=== PATIENT | male | born 1965 | race Caucasian/White ===

== ENCOUNTER 2024-07-28 02:35 | Emergency (ER) | payer OTHER, SELFPAY ==
[2024-07-28] VITALS (15 sets, daily range): BP systolic 116–215; BP diastolic 78–129; PULSE 101–156; RESP 14–92; TEMP 34.9–37.5; O2SAT 18–100; BMI 23.7
[2024-07-28] MEDS: 0.9% Normal Saline (1000mL) 1,000 ML 999 ML IV (02:37)
--- NOTE | 2024-07-28 02:49 | EKG12_ITS ---
Test Reason : DYSRHYTHMIA Blood Pressure : */* mmHG Vent. Rate : 117 BPM Atrial Rate : 105 BPM P-R Int : 168 ms QRS Dur : 124 ms QT Int : 388 ms P-R-T Axes : * 124 -69 degrees QTcB Int : 541 ms Sinus tachycardia Right bundle branch block Septal infarct , age undetermined Lateral infarct , age undetermined Marked ST abnormality, possible inferior subendocardial injury Marked ST abnormality, possible anterior subendocardial injury Poor data quality Abnormal ECG Confirmed by Getachew Wise ([id number]), newspaper editor GEOFFREY REYNA ([id number]) on 07/29/2024 11:40:47 AM Referred By: ЕЛЕНА Confirmed By: Getachew Wise
--- NOTE | 2024-07-28 02:51 | EDS_ITS ---
HPI History of Present Illness Chief Complaint: CPR Informant: EMS Limited: coma Narrative Narrative: 58-year-old male witnessed collapse and arrest by a girlfriend [facility], per EMS they arrived at the patient 10 minutes after the call went out, deputies were there doing CPR, maximum amount of downtime without CPR 5-8 minutes. Paramedics originally called asking permission to discontinue the resuscitation after they had worked on the patient for over 20 minutes, they had nothing but V-fib on the monitor, having attempted cardioversion around 7 times, provided 5 rounds of epinephrine, and 2 doses of amiodarone, 300 mg followed by another 150 mg. However during the conversation with me after they gave the patient a dose of Narcan, the patient regained a pulse and did not seem to be in ventricular fibrillation anymore so they transported the patient. They did not lose a pulse between then and arriving in the ER. Medical history unknown. PFSH PFSH Medical History unable to obtain unable to obtain Home Medications ?Medication ?Instructions ?Recorded ?Last Taken ?Type NK 07/28/24 Unknown History Allergy/AdvReac Type Severity Reaction Status Date / Time No Known Allergies Allergy Verified 07/28/24 03:08 Family History unable to obtain Surgical History unable to obtain Social History Smoking Status: Unknown if ever smoked ROS ROS ED Review of Systems ROS Unobtainable: due to mental status EXAM Physical Exam Const Vital Signs: 07/28/24 02:35 07/28/24 02:36 07/28/24 03:02 Temperature 96 F L Temperature Source Temporal Pulse Rate 156 H 148 H Respiratory Rate 20 H 17 Respiratory Pattern Blood Pressure 174/129 H 174/129 H Blood Pressure Mean 144 144 Pulse Ox 100 Oxygen Delivery Method Ambu-Bag Ambu-Bag Mechanical Ventilator Fraction of Inspired Oxygen (FIO2) 07/28/24 03:05 07/28/24 03:07 07/28/24 03:15 Temperature Temperature Source Pulse Rate 130 H Respiratory Rate 18 14 Respiratory Pattern Normal Normal Blood Pressure 207/119 H Blood Pressure Mean 148 Pulse Ox 100 Oxygen Delivery Method Mechanical Ventilator Fraction of Inspired Oxygen (FIO2) 100 07/28/24 03:30 07/28/24 04:00 07/28/24 04:30 Temperature 94.9 F L 96.0 F L 96.2 F L Temperature Source Core Core Core Pulse Rate 101 H 108 H 104 H Respiratory Rate 14 14 18 Respiratory Pattern Blood Pressure 215/104 H 182/116 H 169/127 H Blood Pressure Mean 141 138 141 Pulse Ox 100 95 95 Oxygen Delivery Method Mechanical Ventilator Mechanical Ventilator Mechanical Ventilator Fraction of Inspired Oxygen (FIO2) 07/28/24 05:00 07/28/24 05:30 Temperature 96.5 F L 96.7 F L Temperature Source Core Core Pulse Rate 106 H 109 H Respiratory Rate 92 H 20 H Respiratory Pattern Blood Pressure 173/116 H 165/119 H Blood Pressure Mean 135 134 Pulse Ox 18 91 Oxygen Delivery Method Mechanical Ventilator Mechanical Ventilator Fraction of Inspired Oxygen (FIO2) Positive well nourished and well developed General Appearance ED: well developed and pallor Orientation / Consciousness: obtunded Exam Limitations: altered mental status HEENT normocephalic and atraumatic; Negative for cyanosis of lips/distal nose Eyes Eyes Narrative: Pupils 1-2 mm Pupil: not reactive Positive for bilateral Neck supple Resp Resp Narrative: + spontaneous respirations. Breath sounds are present and equal bilaterally with bagging. Cardio Cardio Narrative: Intact 2+ distal radial pulses bilaterally Rate: tachycardic Rhythm: abnormal rhythm irregularly irregular GI non-distended Palpation: soft Neuro Neuro Narrative: Obtunded and flaccid x4. GCS [address] with [address] in place Skin General Skin Exam: pallor Lesions: no lesions Rashes: no rashes MDM MDM MDM Narrative Medical decision making narrative: Upon initial presentation and evaluation the patient appears to be in ventricular tachycardia but difficult to assess the rhythm on the monitor and the Zoll. With his rate in the 160s, I presumed he was in ventricular tachycardia, although he does have a pulse. He has already been given amiodarone 450 mg total, so we proceeded to shock him with attempted cardioversion twice, the second time we switched to new pads that were anterior posterior as opposed to right upper chest and left lateral, and with continuing to observe him it appeared more likely to be A-fib with ectopy although on the EKG still difficult to assess the exact rhythm. Does not appear to be STEMI. Therefore since he still has a pulse and a blood pressure, pulse ranging from the 90-140 range, at that point we opted to switch his IGel out for an ETT. See the procedure note, confirmed placement with 1 view chest x-ray on my interpretation, and no other acute abnormality. OG tube also noted to be in good position without a separate KUB. Potassium level is very low so we started replacement, as this can lead to PEA. He will also need alcohol withdrawal prophylaxis. I also had nurses place ice packs in his groins, axillae, and neck as we do not have a hypothermic protocol here but it is indicated for this patient given his ventricular fibrillation arrest. As part of intubating the patient we placed an OG, and it is pulling blood from his stomach, pulled around 30-50 mL, and no continuous active bleeding. The blood is dark red. Therefore we held aspirin. I am starting IV pantoprazole, as alcoholic gastritis versus varices are all in the differential although I do not think this is an acute life-threatening hemorrhage at this point. I was able to speak with significant other. She states he was vomiting earlier in the day, and appeared to have some shortness of breath separate from the vomiting prior to becoming unconscious. He has been vomiting off and on and has an appointment to see a doctor but has not seen one in a long time, and therefore has no known medical problems. She states he is a chronic alcoholic and drinks a lot every day, but probably has not had any in the last 24 hours just cigarettes. She states he does not use any other substances. Also later than that I was able to talk with the police records clerk who was on scene as floor care technician and started CPR on this patient. He arrived on scene at 1:49 AM, the call went out he states at 1:43 AM, and the patient's significant other told him that she last saw him normal at 9 PM when they went to bed and he was feeling short of breath prior to that, and then she woke up somewhere around 1:30 in the morning and checked on him at that time and he was not waking up so she tried really hard to wake him up but was unable and, splashed water on his face, and then called 911. Therefore, downtime could have been a lot longer without CPR. I discussed all this with Dr. Barnes, on for cardiology after I sent him the EKG. He agrees managing the patient supportively at this time and not taking him emergently to the [facility]. He agrees with my interpretation of the EKG that it probably shows subendocardial ischemia without a STEMI and possibly A-fib. Given the patient's persistent altered level of consciousness without parenteral sedatives postintubation, obtained a CT of the head. On my interpretation there is no acute hemorrhage or asymmetry or severe edema. Discussed with hospitalist who recommends transfer to a higher level of care since we do not have GI this weekend, no hypothermic protocols here, and we do not have an atv mechanic who is present, just telemetry-ICU. Significant other prefers him to go to [place] because it is closer, [facility]. I discussed with them, and the nurse practitioner covering the ICU tonight. He accepts the patient under Dr. Conte. History & Record Review Discussion w/independent historian: EMS personnel, Significant other and Other (fisheries enforcement officer on scene) Additional record(s) reviewed:: No prior records Lab Data Attestation: I reviewed the patient's lab results. Labs: Laboratory Results - last 24 hr 07/28/24 07/28/24 07/28/24 02:41 03:11 03:23 WBC 12.9 H RBC 4.83 Hgb 16.5 Hct 50.9 MCV 105.4 H MCH 34.2 H MCHC 32.4 RDW Std Deviation 52.7 H RDW Coeff of Gil 13.4 Plt Count 179 MPV 9.6 Neut % (Auto) Not Reportable Absolute Neuts (auto) 9.7 H Absolute Lymphs (auto) 2.83 Total Counted 100 Neutrophils % (Manual) 68 Band Neutrophils % 7 H Lymphocytes % (Manual) 22 Monocytes % (Manual) 1 Metamyelocytes % 2 H Diff Path Review May foll Platelet Estimate ADEQUATE Anisocytosis 1+ Macrocytosis 1+ Sodium 144 Potassium 2.7 L* Chloride 103 Carbon Dioxide 22.0 Anion Gap 19 H BUN 10 Creatinine 1.78 H Estim Creat Clear Calc 47.28 Est GFR (MDRD) Af Amer 51 L Est GFR (MDRD) Non-Af 42 L BUN/Creatinine Ratio 5.6 L Glucose 287 H Lactic Acid 10.1 H* Calcium 8.8 Total Bilirubin 1.20 H AST 200 H ALT 46 Alkaline Phosphatase 196 H Troponin I High Sens 100 H Total Protein 7.1 Albumin 3.1 L Globulin 4.0 Albumin/Globulin Ratio 0.8 L Urine Opiates Screen NEGATIVE Urine Methadone Screen NEGATIVE Ur Barbiturates Screen NEGATIVE Ur Phencyclidine Scrn NEGATIVE Ur Amphetamines Screen NEGATIVE MDMA (Ecstasy) Screen NEGATIVE U Benzodiazepines Scrn NEGATIVE Urine Cocaine Screen NEGATIVE U Cannabinoids Screen NEGATIVE Ur Drug Screen Comment Ethyl Alcohol < 3.0 ABG Data Attestation: I personally reviewed and interpreted this ABG as follows: ABG results: ABG 07/28/24 03:38 Specimen Type ART Sample Site R Radial pH 7.17 L* Bicarbonate Actual 18.2 L Total CO2 20 Base Excess -10 L O2 Saturation 100 H O2 % 100.0 ABG pCO2 49.6 H ABG pO2 509 H* Norris Test Positive Respiration Rate 14 O2 Delivery Device Adult Vent Vent Mode AC Tidal Volume 450.0 POC PEEP 5 Crit Call To/Read Back Yes Blood Gas Notified Whom Goyo Blood Gas Notified Time 03:39:48 As result of above, decreased FiO2 and increased resp rate from 14 to 18 (mixed resp and met acidosis). Radiography Diagnostic Testing: Clinical Impression(s) from Imaging Studies Chest X-Ray 07/28/24 04:00 IMPRESSION: Suggest advancing endotracheal tube. Electronically Signed: Devora Mendoza MD at 5:04 EST Reading Location ID and State: [address] [place] [address] , Service support , Brain CT 07/28/24 04:09 IMPRESSION: No CT evidence for mass or acute intracranial hemorrhage. Electronically Signed: Devora Mendoza MD at 5:09 EST Reading Location ID and State: [id number] , Service support , Rhythm Strip Rhythm Strip: A-fib Rate: 105 Ectopy: PVC(s) EKG Initial EKG: Attestation: I personally reviewed and interpreted this EKG as follows: Comments: Difficult to determine rhythm; I suspect A-fib with wide QRS, possibly some ST depressions indicating some endocardial ischemia, but no STEMI; frequent ventricular ectopy further complicates rhythm interpretation Prior: No Prior Management Discussion w/another healthcare provider: Hospitalist and C D Still Operator (Cardiology) Procedures Intubations Intubation Method: orotracheal (8.0F ETT, placed via video laryngoscopy, suction small amount of secretions from the glottis, visualized the tube passing through the cords, inflated and placed at 22 cm at the lip) Intubation Verification: Positive color change and Bilateral breath sounds confirmed Intubation Complications: no complications Procedural Sedation 1 (Initial Baseline): Consent Signed: No (Emergent procedure for RSI) Sedation medication: Etomidate Dose: 10 Route: IV Total Moderate Sedation Units: 8 Maliampati Score: Class II ASA Classification: E Comment:: On monitor with prophylactic nasal cannula oxygenation and IV fluids, end-tidal CO2 monitoring, airway equipment and use simultaneously. Tolerated well with no complications. Critical Care Time Critical Care Time: Yes Critical care time (excluding procedures): 30-74 minutes (40 min, not including procedure time), Including time spent:, Discussing w/Patient &/or Family/Police Stenographer, Discussing w/Consultants, Arranging Admission or Transfer and Performing Direct Patient Care at Bedside Discharge Plan Triage Chief Complaint: CPR ED Provider: aCio Nance Dx/Rx/DC Orders Clinical Impression: Cardiopulmonary arrest with successful resuscitation, Acute upper gastrointestinal bleeding, Alcoholism, Acute hypokalemia, Cardiac arrest with ventricular fibrillation, Hypoxic ischemic encephalopathy Prescriptions: No Action NK Primary Care Provider: Care Physician,No Primary Referrals: NOT,DEFINED [Non-Staff] - Print Language: Austrian Disposition Disposition: Acute Care Hospital Discharge Location: [facility]
[2024-07-28 02:53] LABS: Hematocrit 50.9 % (40-54); Hemoglobin 16.5 g/dL (13.0-16.5); Mean Corp Hgb Conc 32.4 g/dL (32-36); Mean Corpuscular Hgb 34.2 pg (27.0-32.0); Mean Corpuscular Volume 105.4 fL (80-94); Mean Platelet Vol. 9.6 fl (6.2-12.0); POSITIVE COUNT YES; POSITIVE MORPHOLOGY YES; Platelet Count 179 K/mm3 (150-450); RBC Distribution Width CV 13.4 % (11.6-14.6); RBC Distribution Width SD 52.7 fl (35.1-43.9); Red Blood Count 4.83 M/mm3 (4.6-6.2); White Blood Count 12.9 K/mm3 (4.4-11.0)
[2024-07-28] MEDS: Etomidate 20 MG/10 ML Vial 10 MG IV (02:56)
[2024-07-28 02:57] LABS: Differential Indicated MANUAL DIFF
[2024-07-28] MEDS: Rocuronium Bromide 50 MG/5 ML Vial 70 MG IV (02:58)
[2024-07-28 03:18] LABS: Lymphocyte 22 % (19-41); Metamyelocyte 2 % (0-1); Monocyte 1 % (0-10); Neutrophil-Band 7 % (0-5); Neutrophil-Segmented 68 % (47-70); Platelet Estimate ADEQUATE (ADEQ); Total Cells Counted 100 (MANUAL DIFF)
[2024-07-28 03:19] LABS: Anisocytosis 1+; Macrocytosis 1+
[2024-07-28 03:20] LABS: Absolute Lymphocyte Count 2.83 X10^3/uL (0.83-4.51); Absolute Neutrophil Count 9.7 X10^3/uL (2.0-7.7)
[2024-07-28 03:24] LABS: ALB/GLOB Ratio 0.8 RATIO (0.9-2.4); AST(SGOT) 200 U/L (15-37); Alanine Aminotransfer ALT/SGPT 46 U/L (16-61); Albumin, Serum 3.1 g/dL (3.2-5.0); Alkaline Phosphatase 196 U/L (45-117); Anion Gap 19 (5-15); BUN 10 mg/dL (7-18); BUN/Creat Ratio 5.6 RATIO (10-20); Calcium,Total 8.8 mg/dL (8.5-10.1); Chloride 103 mmol/L (98-107); Creatinine, Serum 1.78 mg/dL (0.70-1.30); EST Glomerular Filtration Rate 42 mL/min (>60); Est Glom Filt Rate - Afr Amer 51 mL/min (>60); Estimated Creatinine Clearance 47.28 ml/min; Glucose 287 mg/dL (74-106); Potassium 2.7 mmol/L (3.5-5.1); Protein, Total 7.1 g/dL (6.4-8.2); Sodium Level 144 mmol/L (136-145); Troponin-I HS (w/2H Reflex) 100 pg/mL (3.0-78.0)
[2024-07-28 03:25] LABS: Lactic Acid 10.1 mmol/L (0.4-1.9)
[2024-07-28 03:36] LABS: Alcohol, Blood (Medical)-Serum < 3.0 mg/dL
[2024-07-28 03:43] LABS: Allen Test Positive; Base Excess -10 mmol/L (-2 to +2); Bicarbonate 18.2 mmol/L (22-26); Blood Gas Specimen Type ART; Mode AC; O2 Delivery Device Adult Vent; PEEP 5; PO2 509 mmHG (75-100); RR 14; SITE R Radial; SO2 100 % (95-99); Total Carbon Dioxide 20 mmol/L; pCO2 49.6 mmHg (35-45); pH 7.17 (7.35-7.45)
[2024-07-28 03:49] LABS: Amphetamine Urine VISTA NEGATIVE (<1000 ng/mL); Barbiturate Urine VISTA NEGATIVE (< 200 ng/mL); Benzodiazepine Urine VISTA NEGATIVE (< 200 ng/mL); Cocaine Urine VISTA NEGATIVE (< 300 ng/mL); Ecstacy Urine VISTA NEGATIVE (< 500 ng/mL); Methadone Urine VISTA NEGATIVE (< 300 ng/mL); PCP Urine VISTA NEGATIVE (< 25 ng/mL); THC Urine VISTA NEGATIVE (< 50 ng/mL); Vista UDS pH Range 7
--- NOTE | 2024-07-28 04:00 | RAD_ITS ---
STUDY: X-RAY CHEST REASON FOR EXAM: Male, 58 years old patient with endotracheal tube (ETT) placement. TECHNIQUE: Single AP portable view of the chest. COMPARISON: Prior comparison studies are not available for review at this time. FINDINGS: Enteric tube is present with the tip in the left upper quadrant. Cardiac monitoring leads are present. Tip of endotracheal tube is at thoracic inlet located approximately 7.8 cm from the parish. The lungs are clear and hyperexpanded. There is no demonstrated pleural abnormality. Normal size heart. Normal mediastinum and kamini. Normal visualized pulmonary arteries. Normal visualized aortic arch and descending thoracic aorta. Normal visualized thoracic spine. Normal visualized ribs, clavicles, and shoulders. There is no demonstrated abnormality of the visualized soft tissue structures of the upper abdomen. RAD/Chest 1 View (Portable) IMPRESSION: Suggest advancing endotracheal tube. Electronically Signed: Devora Mendoza MD at 5:04 EST ,
--- NOTE | 2024-07-28 04:07 | PCM.HP.STD ---
HPI - General HPI Narrative YENNY GUZMAN, is a 58 M who presents [facility] Medical History unable to obtain Home Medications ?Medication ?Instructions ?Recorded ?Last Taken ?Type NK 07/28/24 Unknown History Allergy/AdvReac Type Severity Reaction Status Date / Time No Known Allergies Allergy Verified 07/28/24 03:08 Family History unable to obtain Surgical History unable to obtain Social History Smoking Status: Unknown if ever smoked Vital Signs Vital Signs Vital Signs: 07/28/24 02:35 07/28/24 02:36 07/28/24 03:02 Temperature 96 F L Temperature Source Temporal Pulse Rate 156 H 148 H Respiratory Rate 20 H 17 Respiratory Pattern Blood Pressure 174/129 H 174/129 H Blood Pressure Mean 144 144 Pulse Ox 100 Oxygen Delivery Method Ambu-Bag Ambu-Bag Mechanical Ventilator 07/28/24 03:05 07/28/24 03:07 07/28/24 03:30 Temperature 94.9 F L Temperature Source Core Pulse Rate 130 H 101 H Respiratory Rate 18 14 Respiratory Pattern Normal Blood Pressure 207/119 H 215/104 H Blood Pressure Mean 148 141 Pulse Ox 100 100 Oxygen Delivery Method Mechanical Ventilator Mechanical Ventilator 07/28/24 04:00 Temperature 96.0 F L Temperature Source Core Pulse Rate 108 H Respiratory Rate 14 Respiratory Pattern Blood Pressure 182/116 H Blood Pressure Mean 138 Pulse Ox 95 Oxygen Delivery Method Room Air Weight Weight: 75 kg Body Mass Index (BMI) 23.7 Results Lab / Micro Data 07/28/24 02:41 07/28/24 02:41 Labs: Laboratory Results - last 24 hr 07/28/24 02:41: WBC 12.9 H, RBC 4.83, Hgb 16.5, Hct 50.9, MCV 105.4 H, MCH 34.2 H, MCHC 32.4, RDW Std Deviation 52.7 H, RDW Coeff of Gil 13.4, Plt Count 179, MPV 9.6, Neut % (Auto) Not Reportable, Absolute Neuts (auto) 9.7 H, Absolute Lymphs (auto) 2.83, Total Counted 100, Neutrophils % (Manual) 68, Band Neutrophils % 7 H, Lymphocytes % (Manual) 22, Monocytes % (Manual) 1, Metamyelocytes % 2 H, Diff Path Review May foll, Platelet Estimate ADEQUATE, Anisocytosis 1+, Macrocytosis 1+, Sodium 144, Potassium 2.7 L*, Chloride 103, Carbon Dioxide 22.0, Anion Gap 19 H, BUN 10, Creatinine 1.78 H, Estim Creat Clear Calc 47.28, Est GFR (MDRD) Af Amer 51 L, Est GFR (MDRD) Non-Af 42 L, BUN/Creatinine Ratio 5.6 L, Glucose 287 H, Lactic Acid 10.1 H*, Calcium 8.8, Total Bilirubin 1.20 H, AST 200 H, ALT 46, Alkaline Phosphatase 196 H, Troponin I High Sens 100 H, Total Protein 7.1, Albumin 3.1 L, Globulin 4.0, Albumin/Globulin Ratio 0.8 L 07/28/24 03:11: Ethyl Alcohol < 3.0 07/28/24 03:23: Urine Opiates Screen NEGATIVE, Urine Methadone Screen NEGATIVE, Ur Barbiturates Screen NEGATIVE, Ur Phencyclidine Scrn NEGATIVE, Ur Amphetamines Screen NEGATIVE, MDMA (Ecstasy) Screen NEGATIVE, U Benzodiazepines Scrn NEGATIVE, Urine Cocaine Screen NEGATIVE, U Cannabinoids Screen NEGATIVE, Ur Drug Screen Comment ABG Data ABG results: ABG 07/28/24 03:38 Specimen Type ART Sample Site R Radial pH 7.17 L* Bicarbonate Actual 18.2 L Total CO2 20 Base Excess -10 L O2 Saturation 100 H O2 % 100.0 ABG pCO2 49.6 H ABG pO2 509 H* Norris Test Positive Respiration Rate 14 O2 Delivery Device Adult Vent Vent Mode AC Tidal Volume 450.0 POC PEEP 5 Crit Call To/Read Back Yes Blood Gas Notified Whom Goyo Blood Gas Notified Time 03:39:48 Rhythm Strip Rhythm Strip: A-fib Rate: 105 Ectopy: PVC(s)
--- NOTE | 2024-07-28 04:09 | CT_ITS ---
STUDY: CT BRAIN WITHOUT CONTRAST REASON FOR EXAM: Male, 58 years old patient with altered mental status RADIATION DOSAGE (If Supplied By Facility): CTDIvol = ( 44.99 ) mGy, DLP = ( 880.47 ) mGycm TECHNIQUE: Transaxial CT imaging of the brain was performed without administration of intravenous contrast material. Individualized dose optimization techniques were used for this CT. COMPARISON: No relevant priors. FINDINGS: Patient is intubated. Enteric tube is present. Normal soft tissue structures. Normal calvarium. Normal size ventricles and extra-axial spaces for the patient''s age. Normal white matter tracts of the cerebral hemispheres. Normal basal ganglia and thalami. Normal brainstem. Normal cerebellum. There is no intracranial hemorrhage. There are no findings of an acute ischemic infarction. Normal visualized paranasal sinuses. CT/Brain/Head without Contrast IMPRESSION: No CT evidence for mass or acute intracranial hemorrhage. Electronically Signed: Devora Mendoza MD at 5:09 EST ,
[2024-07-28] MEDS: Potassium Chloride 10mEq/100mL 10 MEQ/100 ML IV.SOLN. 100 MEQ IV BOLUS (04:15)
[2024-07-28] MEDS: Pantoprazole Sodium 40 MG in 0.9% Normal Saline (50mL Bag) 15 ML 420 MG IV BOLUS (04:42)
[2024-07-28 04:52] LABS: Reflex Troponin-HS? (from REC) Y
[2024-07-28 05:41] LABS: Troponin-I HS 7419 pg/mL (3.0-78.0)
--- NOTE | 2024-07-28 05:41 | ED.RN ---
ACCEPTED TO [facility] ICU @[id number] WAIT BED #
--- NOTE | 2024-07-28 06:09 | ED.RN ---
Pt has received approximately 1240 mLs of fluid.
--- NOTE | 2024-07-28 06:10 | ED.RN ---
Pt does not have any restraints applied at this time. Pt is not on any sedation medication and has no movement at this time.
[2024-07-28 06:22] LABS: Allen Test Positive; Base Excess -7 mmol/L (-2 to +2); Bicarbonate 19.3 mmol/L (22-26); Blood Gas Specimen Type ART; Mode AC; O2 Delivery Device Adult Vent; PEEP 5; PO2 59 mmHG (75-100); RR 18; SITE R Radial; SO2 87 % (95-99); Total Carbon Dioxide 21 mmol/L; pCO2 40.3 mmHg (35-45); pH 7.29 (7.35-7.45)
--- NOTE | 2024-07-28 06:30 | ED.RN ---
[facility] [place] [facility], spoke with nurse
--- NOTE | 2024-07-28 06:42 | ED.RN ---
[facility] called and given report about pt at this time, spoke with Brenda. They advised they will be giving us a call back in the next 30 minutes or so.
[2024-07-28 06:52] LABS: Reflex Lactate? Y
--- NOTE | 2024-07-28 07:18 | ED.RN ---
Pt started to have some slight movement and was put in soft restraints at this time.
[2024-07-28] MEDS: fentaNYL drip 100 ML 5 MCG CONT INF (07:43)
--- NOTE | 2024-07-28 07:48 | ED.RN ---
VS AT THIS TIME ARE ELEVATED AND PT IS SHOWING SIGNS OF AGITATION. JUST STARTED THE [place] DRIP. TRANSPORT ETA 10 MINS.
[2024-07-28 08:05] LABS: Lactic Acid 8.7 mmol/L (0.4-1.9)
[2024-07-29 13:55] LABS: Pathologist Review Reviewed
== END 2024-07-28 08:30 | disposition short-term general hospital (02) ==
PROVIDERS: Emergency Provider Emergency Medicine; Visit Provider Emergency Medicine
DX: I46.9 Cardiac arrest, cause unspecified (principal); G93.1 Anoxic brain damage, not elsewhere classified; I49.01 Ventricular fibrillation; I21.4 Non-ST elevation (NSTEMI) myocardial infarction; F10.20 Alcohol dependence, uncomplicated; I49.3 Ventricular premature depolarization; K92.2 Gastrointestinal hemorrhage, unspecified; E87.6 Hypokalemia; F17.210 Nicotine dependence, cigarettes, uncomplicated
CPT/HCPCS: 31500; 31720; 36600; 70450; 71045; 80053; 80307; 82077; 82803; 83605; 84484; 85025; 87070; 87077; 87186; 87205; 93005; 94002; 96361; 96365; 96366; 96367; 96368; 96375; 99252; 99285; A4216; G0463